=== PATIENT | female | born 1975 | race Caucasian/White ===

== ENCOUNTER → 2018-04-12 07:29 | Outpatient (CLI) | payer OTHER, SELFPAY ==
--- NOTE | 2018-04-12 07:31 | DI.MRI.S_ITS ---
PROCEDURE: MR CERVICAL SPINE WO CON INDICATIONS: cervical spondyloisis s/p NVA TECHNIQUE: Noncontrast sagittal T1 spin echo and T2 fast spin echo, sagittal STIR, foraminal oblique sagittal T2 fast spin echo, and axial gradient echo or T2 fast spin echo through the cervical spine. COMPARISON: None. FINDINGS: Image quality: Diagnostic. Spinal Cord: Visualized spinal cord has normal size and signal. No cerebellar tonsillar herniation. The imaged midline intracranial structures are grossly unremarkable. Paraspinous Soft Tissues: No paravertebral masses. Prevertebral soft tissues are normal in thickness. No definite lymphadenopathy is identified. Bones: The vertebral body heights and marrow signal are well-maintained. There is no evidence of an acute fracture or dislocation. No suspicious osseous lesions are identified. C2-C3: There is no significant disc bulge or facet arthropathy. No central canal or neural foraminal stenosis is evident. C3-C4: There is no significant disc bulge. However, there is mild bilateral facet arthrosis (right greater than left). These findings result in mild bilateral neural foraminal narrowing. There is no central canal stenosis. C4-C5: There is no significant disc bulge. However, there is mild bilateral facet arthropathy (left greater than right). These findings result in mild left neural foraminal narrowing. There is no central canal or right neural foraminal stenosis. C5-C6: There is mild diffuse disc bulge with associated bilateral facet arthrosis. There is no central canal stenosis. However, there is mild right neural foraminal narrowing. No left neural foraminal narrowing is evident. C6-C7: There is mild disc height loss and diffuse disc bulge with disc desiccation. No significant facet arthropathy is evident. However, the uncovertebral hypertrophic changes are present. There is no central canal stenosis. There is mild bilateral neural foraminal narrowing (right greater than left). C7-T1: There is no significant disc bulge or facet arthropathy. No central canal or neural foraminal stenosis is evident. IMPRESSION: 1. Mild multilevel degenerative changes of the cervical spine. 2. No focal disc protrusions or extrusions. 3. Central canal stenosis: None. 4. No foraminal stenosis: C3-C4 (mild bilateral), C4-C5 (mild left), C5-C6 (right), C6-C7 (mild bilateral). Dictated by: Raghu Sinclair M.D. on 04/12/2018 at 10:47 Approved by: Raghu Sinclair M.D. on 04/12/2018 at 10:55
--- NOTE | 2018-04-12 07:31 | DI.MRI.S_ITS ---
PROCEDURE: MR LUMBAR SPINE WO CON INDICATIONS: cervical spondyloisis s/p NVA TECHNIQUE: Noncontrast sagittal T1 spin echo and T2 fast echo, sagittal STIR, axial T1 and T2 fast spin echo through the lumbar spine. In cases with scoliosis, additional coronal T2 fast spin echo may be performed. COMPARISON: [facility], CR, XR LUMBAR SPINE 2 OR 3 VIEWS, 07/16/2017, 15:06. FINDINGS: Image quality: Diagnostic. Spinal Cord: The imaged portions of the spinal cord are normal in size and signal. The conus medullaris is normal in position. Paraspinous Soft Tissues: No paravertebral masses. Image soft tissues of the abdomen and pelvis are grossly unremarkable; however, not adequately evaluated on this exam. The abdominal aorta is normal in course and caliber. Bones: The vertebral body heights and marrow signal are within normal limits. There is no acute fracture or dislocation. Lower thoracic levels: No significant degenerative changes of the included lower thoracic levels are present. There is no central canal or neural foraminal narrowing at these levels. L1-L2: There is no significant disc bulge or facet arthropathy. There may be early disc desiccation. There is no central canal or neural foraminal stenosis. L2-L3: There is disc desiccation and mild disc height loss with minimal diffuse disc bulge. There is no significant facet arthrosis. No central canal or neural foraminal narrowing is evident. L3-L4: There is no significant disc bulge or facet arthropathy. There may be mild disc desiccation. There is no central canal or neural foraminal stenosis. L4-L5: There is mild disc height loss, and diffuse disc bulge, a small central/left paracentral annular fissure, and mild to moderate bilateral facet arthrosis. There is no central canal stenosis. No significant neural foraminal narrowing is evident. L5-S1: There is disc desiccation and diffuse disc bulge with a probable central annular fissure. Moderate bilateral facet arthropathy is present. There is no central canal stenosis. There may be mild bilateral neural foraminal narrowing. IMPRESSION: 1. Mild degenerative changes of the lower lumbar spine. 2. No disc protrusions or disc extrusions. Small annular fissures are noted at the L4-5 and L5-S1 levels. 3. Central canal stenosis: None. 4. Neural foraminal stenosis: L5-S1 (possible mild bilateral). Dictated by: Raghu Sinclair M.D. on 04/12/2018 at 11:00 Approved by: Raghu Sinclair M.D. on 04/12/2018 at 11:11
== END ==
PROVIDERS: PCP Obstetrics & Gynecology; Visit Provider Physical Medicine & Rehabilitation
DX: M47.892 Other spondylosis, cervical region (principal); M50.30 Other cervical disc degeneration, unspecified cervical region; M51.36 Other intervertebral disc degeneration, lumbar region
CPT/HCPCS: 72141; 72148

== ENCOUNTER 2018-05-08 14:57 | Outpatient (CLI) | payer OTHER, SELFPAY ==
[2018-05-08] VITALS (9 sets, daily range): BP systolic 110–125; BP diastolic 71–86; PULSE 80–87; RESP 16–18; TEMP 36.4; O2SAT 98–100
--- NOTE | 2018-05-08 14:59 | DI.RAD.S_ITS ---
PROCEDURE: PAIN L/SI FACET INJ/BLK 1STL INDICATIONS: LUMBAR REGION SPONDYLOSIS FINDINGS: Fluoroscopic spot filming was performed to verify placement of spinal needles at the right L4-5 and right L5-S1 level(s), as labeled on the films. Appropriate location(s) of the needle tip(s) was confirmed by injection of iodinated contrast. IMPRESSION: Successful needle tip localization for facet joint region injection on the right at L4-5 and L5-S1. Dictated by: Antonio Lynn M.D. on 05/08/2018 at 16:34 Approved by: Antonio Lynn M.D. on 05/08/2018 at 16:36
--- NOTE | 2018-05-08 15:22 | P.PCN_ITS ---
Procedures Date/Time Date of procedure: 05/08/18 Time of procedure: 15:21 General Procedure description: PREOP DIAGNOSIS 1. FACET ARTHROPATHY 2. AXIAL LBP 3. MULTILEVEL DDD POST OP DIAGNOSIS 1. FACET ARTHROPATHY 2. AXIAL LBP 3. MULTILEVEL DDD PROCEDURES 1. FLUORSCOPICALLY GUIDED CONTRAST CONTROLLED FACET JOINT INJECTIONS RIGHT L4/5 , L5/S1 SURGEON: Williams Prince, DO INDICATIONS Lindsey is referred by KODY Armas for treatment of Axial LBP FINDINGS Multilevel Facet Arthropathy with Clinically significant axial LBP DESCRIPTION OF PROCEDURE Fluoroscopically guided, contrast-controlled right L4/5, L5/S1 facet joint injections. Following denial of allergy and review of potential side effects and complications, including, but not necessarily limited to, infection, allergic reaction, local tissue breakdown, stroke, temporary or permanent nerve injury, paralysis, and possible , the patient indicated that the patient understood and agreed to proceed. An informed consent document was signed by the patient, witnessed by a nurse, and placed in the patient's chart. Additionally, other treatment options including medications, modalities, and physical therapy were reviewed with the patient. After review of previous anaesthesic history and IV conscious sedation the patient was deemed safe to proceed with todays procedure with IV conscious sedation as ASA class II designation. Safety time-out was performed to confirm patient ID, procedure to be performed and site of procedure. IV sedation was accomplished with a combination of 5mg was administered by the RN after DO order , titrated to patient comfort during the course of the procedure while the patient remained responsive to all verbal commands. In the prone position, following sterile prep and drape of the lumbar region, the posterior aspect of the right L4/5, L5/S1 facet joints were identified fluoroscopically. The skin was anesthetized via a 25-gauge 1.5-inch needle with 1% lidocaine solution into the corresponding facet joints. At this point, a 22-gauge 3.5-inch spinal needle was atraumatically introduced and advanced under fluoroscopic guidance into the corresponding facet joints. Following negative aspiration, injections of approximately 0.2-cc of Isovue 200 confirmed interarticular placement without vascular uptake. Radiological data, including multiple fluoroscopic views of the lumbosacral spine, reveal a spinal needle at the right L4/5, L5/S1 facet joints. Subsequent views show flow of contrast material both superiorly and inferiorly within the joint space without vascular or intrathecal uptake. At this point, a total of 0.5 cc including a mixture of 0.25cc Marcaine and 0.25cc betamethasone was injected without complication into each of the corresponding facet joints. The procedure tolerated the procedure well without signs or symptoms of complications prior to transfer to the recovery area continued monitoring without incident. The patient was then transferred to the recovery area where they were observed for an appropriate period of time after the injection. The patient reported a VAS score of 7 prior to the procedure and a post-procedure VAS of 0. Total Fluoroscopy Time: 12.7 seconds Total Conscious Sedation Time: 24min POST OP INSTRUCTIONS The patient was provided a Pain Log to continue to record their response to the target-specific procedure prior to follow-up visit with their referring physician. Additionally, specific post-injection care instructions and a contact number to our office were provided if concerns arise regarding possible complications associated with the procedure are suspected. Williams Prince DO Complications: none
[2018-05-08] MEDS: MIDAZOLAM 5 MG/5 ML VIAL IV (15:27)
[2018-05-08] MEDS: BETAMETHASONE 30 MG/5 ML MDV 12 MG INJ (15:30)
[2018-05-08] MEDS: IOPAMIDOL 15 ML VIAL 3 ML INJ (15:30)
[2018-05-08] MEDS: BUPIVACAINE 0.5% (PF) VIAL 2 ML INJ (15:30)
--- NOTE | 2018-05-09 15:25 | PC.NURSE ---
FOLLOW UP CALL MADE, PT STATES SHE IS A LITTLE SORE WOULD NOT GIVE IT A 0-10 NUMBER. I SUGGESTED SHE TAKE AN OVER THE COUNTER PAIN MEDICATION FOR IT LIKE TYLENOL (DID NOT SUGGEST IBUPROFEN SHE IS ON CELEBREX). GAVE PT OFFICE NUMBER FOR FUTURE CONCERNS AND REMINDED HER OF HER FOLLOW UP APPT.
== END 2018-05-08 16:14 | disposition home or self-care (01) ==
PROVIDERS: PCP Nurse Practitioner Family; Visit Provider Physical Medicine & Rehabilitation
DX: M47.816 Spondylosis without myelopathy or radiculopathy, lumbar region (principal); M47.817 Spondylosis without myelopathy or radiculopathy, lumbosacral region; M51.36 Other intervertebral disc degeneration, lumbar region; M51.37 Other intervertebral disc degeneration, lumbosacral region
CPT/HCPCS: 64493; 64494; 99152; J0702; J2250

== ENCOUNTER 2018-05-29 08:49 | Outpatient (CLI) | payer OTHER, SELFPAY ==
[2018-05-29] VITALS (13 sets, daily range): BP systolic 99–130; BP diastolic 65–91; PULSE 76–88; RESP 16–20; TEMP 36.6; O2SAT 99–100
--- NOTE | 2018-05-29 08:50 | DI.RAD.S_ITS ---
PROCEDURE: PAIN C/T INTERLAMINAR INJECT INDICATIONS: CERVICAL HERNIATED NUCLEUS PULPOSIS FINDINGS: Fluoroscopic spot filming was performed to verify placement of spinal needles at the C6-7 level(s), as labeled on the films. Appropriate location(s) of the needle tip(s) was confirmed by injection of iodinated contrast. IMPRESSION: Posterior midline C6-C7 translaminar epidural steroid injection. Dictated by: Antonio Lynn M.D. on 05/29/2018 at 15:10 Approved by: Antonio Lynn M.D. on 05/29/2018 at 15:10
[2018-05-29] MEDS: MIDAZOLAM 5 MG/5 ML VIAL IV (10:10)
[2018-05-29] MEDS: fentaNYL 100 MCG/2 ML INJ 50 MCG IV (10:16)
[2018-05-29] MEDS: LIDOCAINE 1% 20 ML INJ 5 ML INJ (10:18)
[2018-05-29] MEDS: IOPAMIDOL 15 ML VIAL 3 ML INJ (10:18)
[2018-05-29] MEDS: DEXAMETHASONE 10 MG/ML VIAL 30 MG INJ (10:18)
--- NOTE | 2018-05-29 10:30 | PM.PROC.1 ---
Procedures Date/Time Date of procedure: 05/29/18 Time of procedure: 10:30 General Procedure description: PREOP DIAGNOSIS 1. CERVICAL STENOSIS, 2. CERVICAL HNP WITH UPPER EXTREMITY RADICULAR FEATURES, POST OP DIAGNOSIS 1. CERVICAL STENOSIS, 2. CERVICAL HNP WITH UPPER EXTREMITY RADICULAR FEATURES, PROCEDURES 1. FLUORSCOPICALLY GUIDED CONTRAST CONTROLLED INTERLAMINAR EPIDURAL STEROID INJECTION - C6/7 TL ARIEL PHYSICIAN: Williams Prince DO INDICATIONS: Lindsey is referred by KODY Armas for treatment of Cervical HNP with Upper Extremity Paresthesias. FINDINGS Cervical Stenosis due to disc deterioration and nerve root irritation and nerve root irritation DESCRIPTION OF PROCEDURE Fluoroscopically guided, contrast-controlled C6/7 translaminar epidural steroid injection with conscious sedation. Following denial of allergy and review of potential side effects and complications, including, but not necessarily limited to, infection, allergic reaction, local tissue breakdown, temporary as well as permanent nerve injury, stroke, paralysis, and possible , the patient indicated that patient understood and agreed to proceed. An informed consent document was signed by the patient, witnessed by a nurse, and placed in the patient's chart. Additionally, other treatment options including modalities, medications, and physical therapy were reviewed with the patient. After review of previous anaesthesic history and IV conscious sedation the patient was deemed safe to proceed with todays procedure with IV conscious sedation as ASA class II designation. Safety time-out was performed to confirm patient ID, procedure to be performed and site of procedure. IV sedation was accomplished with a combination of 3mg of Versed administered by the RN after DO order, titrated to patient comfort during the course of the procedure while the patient remained responsive to all verbal commands. In the prone position, following sterile prep and drape of the cervical region, the C6/7 translaminar space was identified fluoroscopically. The skin was anesthetized via a 25-gauge 1.5-inch needle with 1% lidocaine solution. At this point, a 25-gauge, 2.5-inch short bevel spinal needle was atraumatically introduced and advanced under fluoroscopic guidance into epidural space at the C6/7 translaminar space. Depth was confirmed on lateral view. Radiological data, including multiple fluoroscopic views of the cervical spine, reveal a spinal needle at the C6/7 translaminar space. Lateral views then show placement of the needle in the epidural space. Subsequent views show contrast material flowing superiorly and inferiorly in the epidural space. DSA fluoroscopy with live contrast injection, once again, confirmed no vascular or intrathecal uptake. At this point, using loss of resistance technique with saline and air, the epidural space was entered. Following negative aspiration, injection of approximately 1.5 cc of Isovue-200 with live fluoroscopy in the AP view confirmed epidural flow in the epidural space without vascular or intrathecal uptake observed. Subsequently, a test dose of 1 cc of 1% lidocaine solution was injected and patient was observed for two minutes without signs or symptoms of complications, including abdominal pain, shortness of breath, bilateral upper or lower extremity weakness, nausea and vomiting, prior to steroid injection. At this point, 3 cc or 30 mg of dexamethasone was then injected without incident. The patient tolerated the procedure well without signs or symptoms of complications prior to being transferred to the recovery area for further monitoring, The patient was then transferred to the recovery area where they were observed for an appropriate period of time after the injection. The patient reported a VAS score of 6 prior to the procedure and a post-procedure VAS of 0. Total Fluoroscopy Time: 37.0 seconds Total Conscious Time: 24min POST OP INSTRUCTIONS The patient was provided a Pain Log to continue to record their response to the target-specific procedure prior to follow-up visit with the referring provider. Additionally, specific post-injection care instructions and a contact number to our office were provided if concerns arise regarding possible complications associated with the procedure are suspected. Williams Prince DO Complications: none
== END 2018-05-29 11:20 ==
LOC: RAD 08:49
PROVIDERS: PCP Nurse Practitioner Family; Visit Provider Physical Medicine & Rehabilitation
DX: M50.123 Cervical disc disorder at C6-C7 level with radiculopathy (principal); M48.02 Spinal stenosis, cervical region
CPT/HCPCS: 62321; 99152; J1100; J2250; J3010

== ENCOUNTER 2018-06-27 07:21 | Outpatient (CLI) | payer OTHER, SELFPAY ==
[2018-06-27] VITALS (12 sets, daily range): BP systolic 98–123; BP diastolic 62–93; PULSE 78–91; RESP 15–18; TEMP 36.3; O2SAT 98–100
--- NOTE | 2018-06-27 07:22 | DI.RAD.S_ITS ---
PROCEDURE: PAIN L/SI FACET INJ/BLK 1STL INDICATIONS: SPONDYLOSIS FINDINGS: Fluoroscopic spot filming was performed to verify placement of spinal needles at the on the right at the L4, L5, and S1 level(s), as labeled on the films. IMPRESSION: Intraprocedural examination within normal limits. Dictated by: Narendra Post M.D. on 06/28/2018 at 9:35 Approved by: Narendra Post M.D. on 06/28/2018 at 9:35
[2018-06-27] MEDS: MIDAZOLAM 5 MG/5 ML VIAL IV (08:23)
[2018-06-27] MEDS: IOPAMIDOL 15 ML VIAL 3 ML INJ (08:29)
[2018-06-27] MEDS: BETAMETHASONE 30 MG/5 ML MDV 12 MG INJ (08:30)
[2018-06-27] MEDS: BUPIVACAINE 0.5% (PF) VIAL 2 ML INJ (08:30)
--- NOTE | 2018-06-27 08:37 | PM.PROC.1 ---
Procedures Date/Time Date of procedure: 06/27/18 Time of procedure: 08:37 General Procedure description: POST OP DIAGNOSIS 1. FACET ARTHROPATHY PROCEDURES 1. Right L4, L5 and S1 MB BLOCKS PHYSICIAN: Williams Prince DO INDICATIONS: Lindsey is referred by KODY Armas for treatment of Right Axial LBP. DESCRIPTION OF PROCEDURE Fluoroscopically guided, contrast-controlled right L4, L5 and S1 medial branch blocks with 0.5cc of 0.5% Marcaine. Following denial of allergy and review of potential side effects and complications, including, but not necessarily limited to, infection, allergic reaction, local tissue breakdown, nerve injury, paralysis, stroke and possible , the patient indicated that the patient understood and agreed to proceed. An informed consent document was signed by the patient, witnessed by a nurse, and placed in the patient's chart. After review of previous anaesthesic history and IV conscious sedation the patient was deemed safe to proceed with todays procedure with IV conscious sedation as ASA class II designation. Safety time-out was performed to confirm patient ID, procedure to be performed and site of procedure. IV sedation was accomplished with a combination of 5mg was administered by the RN after DO order, titrated to patient comfort during the course of the procedure while the patient remained responsive to all verbal commands In the prone position, following sterile prep and drape of the lumbar region, the right L4, L5 and S1 anatomical location of the medial branch of the dorsal ramus was identified fluoroscopically. Subsequently an anesthetic skin wheal using 1% lidocaine solution was initiated at each of the anatomical spots. Subsequently then a 22-gauge 3.5-inch spinal needle was atraumatically introduced and advanced under fluoroscopic guidance at each of the corresponding sites at the right L4, L5 and S1 MB. After negative aspiration, 0.2 cc of Isovue 200 was injected, confirming placement without vascular or intrathecal uptake. Subsequently then 0.5 cc of 0.5% Marcaine solution was injected at each of the corresponding sites at the right L4, L5 and S1 medial branch locations. The patient tolerated the procedure well without signs or symptoms of complications. The procedure tolerated the procedure well without signs or symptoms of complications prior to transfer to the recovery area continued monitoring without incident. Post-procedure, the patient was monitored initiating provocative activities to measure the amount of relief from block of the facetogenic pain. The patient reported a VAS of 7 prior to the procedure and a post-procedure VAS of 1. It has been a pleasure to assist in the diagnostic and therapeutic care of your patient. Total Fluoroscopy Time: 24.8 seconds Total Conscious Sedation Time: 24min POST OP INSTRUCTIONS The patient was provided with a Pain Log to complete over the next several hours and subsequent days prior to the patient's follow up with the ordering physician. 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 The patient is aware, was provided, once again, with a Pain Log and will follow up with the referring physician for review and clinical correlation Williams Prince DO Complications: none
== END 2018-06-27 09:07 ==
LOC: RAD 07:22
PROVIDERS: PCP Nurse Practitioner Family; Visit Provider Physical Medicine & Rehabilitation
DX: M47.816 Spondylosis without myelopathy or radiculopathy, lumbar region (principal); M54.5 Low back pain
CPT/HCPCS: 64493; 64494; 99152; J0702; J2250

== ENCOUNTER 2018-08-01 07:16 | Outpatient (CLI) | payer OTHER, SELFPAY ==
[2018-08-01] VITALS (13 sets, daily range): BP systolic 99–133; BP diastolic 45–81; PULSE 70–82; RESP 16–18; TEMP 36.4; O2SAT 95–100
--- NOTE | 2018-08-01 07:18 | DI.RAD.S_ITS ---
PROCEDURE: PAIN L/S MED/LAT N RFA BILAT INDICATIONS: Lumbosacral spondylosis FINDINGS: Fluoroscopic spot filming was performed to verify placement of spinal needles at the right L4, L5, and S1 level(s), as labeled on the films. Appropriate location(s) of the needle tip(s) was confirmed by injection of iodinated contrast. IMPRESSION: Successful needle tip localization for L4-S1 medial branch rhizotomy. Dictated by: Antonio Lynn M.D. on 08/01/2018 at 13:00 Approved by: Antonio Lynn M.D. on 08/01/2018 at 13:01
[2018-08-01] MEDS: LIDOCAINE 1% 20 ML INJ 10 ML INJ (08:24)
[2018-08-01] MEDS: fentaNYL 100 MCG/2 ML INJ IV (08:37)
[2018-08-01] MEDS: MIDAZOLAM 5 MG/5 ML VIAL IV (08:37)
[2018-08-01] MEDS: BUPIVACAINE 0.5% (PF) VIAL 5 ML INJ (08:42)
--- NOTE | 2018-08-01 09:04 | PC.NURSE ---
assisting pt off proc. table and will transport to post op in stable condition
--- NOTE | 2018-08-01 09:12 | P.PCN_ITS ---
Procedures Date/Time Date of procedure: 08/01/18 Time of procedure: 09:10 General Procedure description: PREOP DIAGNOSIS 1. RECALCITRANT FACET ARTHROPATHY, POST OP DIAGNOSIS 1. RECALCITRANT FACET ARTHROPATHY, PROCEDURES 1. RIGHT L4 AND L5 MEDIAL BRANCH RADIOFREQUENCY NEUROTOMY AND RIGHT S1 DORSAL RAMUS BRANCH RADIOFREQUENCY NEUROTOMY, SURGEON: Williams Prince, DO INDICATIONS Lindsey is referred by KODY Armas for treatment of facet arthropathy. DESCRIPTION OF PROCEDURE Right L4 and L5 medial branch radiofrequency neurotomy and right S1 dorsal ramus branch radiofrequency neurotomy under fluoroscopy with conscious sedation. The patient is well known to this clinic having undergone previous facet injections with good but temporary relief. The patient has experienced appropriate, concordant relief with previous facet and median branch blocks but the patient's pain has been recalcitrant to further conservative measures. Therefore, based upon the patient's relief and persistent symptoms, the patient is considered an appropriate candidate for facet rhizotomy. All of the patient' s questions regarding the risks versus benefits of the procedure, including, but not limited to, bleeding, infection, temporary as well as lasting nerve injury, paralysis, stroke, and , as well treatment alternatives were answered to satisfaction. After review of previous anaesthesic history and IV conscious sedation the patient was deemed safe to proceed with todays procedure with IV conscious sedation as ASA class II designation. Safety time-out was performed to confirm patient ID, procedure to be performed and site of procedure. IV sedation was accomplished with a combination of 4mg of Versed was administered by the RN after DO order, titrated to patient comfort during the course of the procedure while the patient remained responsive to all verbal commands. After obtaining informed consent, denial of pertinent drug allergies, as well as being made aware of the potential risks of bleeding, infection, spinal cord trauma, paralysis, temporary and permanent nerve damage, seizure, stroke, and possible , the patient was brought to the fluoroscopy suite and positioned prone on the fluoroscopy table. The lumbar region was prepped with Betadine and covered with a fenestrated drape in the usual sterile fashion. Appropriate monitors applied including pulse oximeter, pulse, and blood pressure for regular monitoring throughout the procedure. After local infiltration using 1% lidocaine, under fluoroscopic guidance, a 10- cm RF insulated needle with a 10-mm active tip was positioned parallel to the junction of the right sacral ala and the superior articulating process where the S1 dorsal ramus resides. Needle placement was confirmed with sensory stimulation at 50 Hz, with motor stimulation of .5v on the right which produced local stimulation without radicular component. The stimulation was then increased to 1.5v with, once again, only local multifidus stimulation without radicular component. This was then followed by two discreet lesions performed at 80 degrees Celsius for 90 seconds each. The needle was then removed and the identical procedure was performed along the length of the right L5 medial branch with motor stimulation at .7v on the right. The identical procedure was once again performed along the length of the right L4 medial branch with motor stimulation of .5v on the right. The patient tolerated the procedure well without signs or symptoms of complications prior to transfer to the recovery area continued monitoring without incident. The patient was then transferred to the recovery area where they were observed for an appropriate period of time after the injection. The patient was then transferred to the recovery area where they were observed for an appropriate period of time after the injection. The patient reported a VAS score of 9 prior to the procedure and a post- procedure VAS of 0. Total Fluoroscopy Time: 31 seconds Total Conscious Sedation Time: 45min POST OP INSTRUCTIONS The patient was provided a Pain Log to continue to record the patient's response to the target-specific procedure prior to the patient's follow-up visit with the referring physician. Additionally, specific post-injection care instructions and a contact number to our office were provided if concerns arise regarding possible complications associated with the procedure are suspected. Williams Prince DO Complications: none
--- NOTE | 2018-08-01 09:15 | PC.NURSE ---
received pt from Sushma CHAU after procedure, pt stable awake and able to get needs met. resumed monitoring.
[2018-08-01] MEDS: IOPAMIDOL 15 ML VIAL 3 ML INJ (09:25)
== END 2018-08-01 09:25 ==
LOC: RAD 07:17
PROVIDERS: PCP Nurse Practitioner Family; Visit Provider Physical Medicine & Rehabilitation
DX: M47.816 Spondylosis without myelopathy or radiculopathy, lumbar region (principal)
CPT/HCPCS: 64635; 64636; 99152; 99153; J2250; J3010

== ENCOUNTER 2019-01-02 07:25 | Outpatient (CLI) | payer OTHER, SELFPAY ==
[2019-01-02] VITALS (8 sets, daily range): BP systolic 102–126; BP diastolic 65–81; PULSE 44–76; RESP 16–18; O2SAT 96–100
--- NOTE | 2019-01-02 07:26 | DI.RAD.S_ITS ---
PROCEDURE: PAIN SI JOINT INJECTION, 6 total images, 3 on the right and 3 on the left INDICATIONS: SPONDYLOSIS FINDINGS: Fluoroscopic spot filming was performed to verify placement of spinal needles at the right and left sacroiliac joints, as labeled on the films. Appropriate location(s) of the needle tip(s) was confirmed by injection of iodinated contrast. IMPRESSION: Right and left sacroiliac joint needle tip localization over the lower margin of the sacroiliac joints bilaterally, incidental is made of an IUD centrally positioned. Dictated by: Antonio Lynn M.D. on 01/02/2019 at 9:37 Approved by: Antonio Lynn M.D. on 01/02/2019 at 9:38
[2019-01-02] MEDS: fentaNYL 100 MCG/2 ML INJ 50 MCG IV (08:19)
[2019-01-02] MEDS: MIDAZOLAM 5 MG/5 ML VIAL IV (08:19)
[2019-01-02] MEDS: LIDOCAINE 1% 20 ML INJ 10 ML INJ (08:30)
[2019-01-02] MEDS: IOPAMIDOL 15 ML VIAL 3 ML INJ (08:30)
[2019-01-02] MEDS: BETAMETHASONE 30 MG/5 ML MDV 12 MG INJ (08:31)
[2019-01-02] MEDS: BUPIVACAINE 0.5% (PF) VIAL 2 ML INJ (08:31)
--- NOTE | 2019-01-02 08:38 | PC.NURSE ---
Pt tolerated procedure, pt awake and alert able to get off table with standby assist. Transferred to pre procedure room via wheelchair for continued monitoring with Sushma CHAU.
--- NOTE | 2019-01-02 08:44 | PM.PROC.1 ---
Procedures Date/Time Date of procedure: 01/02/19 Time of procedure: 08:44 General Procedure description: PREOP Dx: Sacroiliac joint pain/DJD POST OP DX: Sacroiliac Joint Pain/DJD Procedures: Fluoroscopic guided contrast controlled bilateral sacroiliac joint injection Physician: Williams Prince D.O. Indications: Lindsey is referred by KODY Armas for treatment of bilateral sacroiliac joint DJD Description of procedure Fluoroscopic guided, contrast controlled right sacroiliac joint injection Following denial of allergies and review of potential side effects and complications, including, but not necessarily limited to, infection, allergic reaction, local tissue breakdown, temporary as well as permanent nerve injury, paralysis, stroke and possible , the patient indicated that they understood and agreed to proceed. An informed consent was signed by the patient, witnessed by a nurse, and placed in the patient's chart. Additionally, other treatment options including modalities, medications, and physical therapy were reviewed with the patient. After review of previous anaesthesic history and IV conscious sedation the patient was deemed safe to proceed with todays procedure with IV conscious sedation as ASA class II designation. Safety time-out was performed to confirm patient ID, procedure to be performed and site of procedure. IV sedation was accomplished with a combination of 5mg of Versed and 50mcg Fentanyl was administered by the RN after DO order, titrated to patient comfort during the course of the procedure while the patient remained responsive to all verbal commands In the prone position following sterile prep and drape of the pelvic region, the hyper lucency on in the inferior aspect of the sacroiliac joint was identified fluoroscopically the skin was anesthetized be a 25 gauge 1 eventual with approximately 2 cc of 1% lidocaine solution. At this point, a 22 gauge spinal needle was atraumatically introduced and advanced under fluoroscopic guidance into the inferior aspect of the right sacroiliac joint. Following negative aspiration, approximately 0.3 cc of Isovue-300 was injected confirming intra-articular placement without vascular uptake. Radiographic data, including multiple fluoroscopic views of the pelvis, reveals a spinal needle in the sacroiliac joint hyper lucent zone. Subsequent view show flow contrast tear superiorly and inferiorly within the joint capsule without vascular intrathecal uptake. At this point a total of 1 cc or 0 8 of 0.5% Marcaine was combined with 1 cc of 6 mg of betamethasone was injected without incident. After complettion of the procedure on the right attention was refocused on the to left where the procedure was replicated. The procedure tolerated the procedure well without signs or symptoms of complications prior to transfer to the recovery area continued monitoring without incident. The patient was then transferred to the recovery area with a bur observed for an appropriate time after the injection. The patient reverted a vas score of 7 prior to the procedure and postprocedure vas of 1. Total fluoroscopy time: 22.7 sec Total conscious sedation time: 24 min Postop instructions The patient was provided with a pain like to continue to record the patient's response to the target specific procedure prior to the patient's follow-up visit with the referring physician. Additionally, specific post injection care instructions and a contact number to our office were provided if concerns arise regarding the possible complications associated with procedure are suspected. Williams Prince D.O. Complications: none
--- NOTE | 2019-01-02 08:47 | P.PCN_ITS ---
Procedures Date/Time Date of procedure: 01/02/19 Time of procedure: 08:44 General Procedure description: PREOP Dx: Sacroiliac joint pain/DJD POST OP DX: Sacroiliac Joint Pain/DJD Procedures: Fluoroscopic guided contrast controlled bilateral sacroiliac joint injection Physician: Williams Prince D.O. Indications: Lindsey is referred by KODY Armas for treatment of bilateral sacroiliac joint DJD Description of procedure Fluoroscopic guided, contrast controlled right sacroiliac joint injection Following denial of allergies and review of potential side effects and complications, including, but not necessarily limited to, infection, allergic reaction, local tissue breakdown, temporary as well as permanent nerve injury, paralysis, stroke and possible , the patient indicated that they understood and agreed to proceed. An informed consent was signed by the patient, witnessed by a nurse, and placed in the patient's chart. Additionally, other treatment options including modalities, medications, and physical therapy were reviewed with the patient. After review of previous anaesthesic history and IV conscious sedation the patient was deemed safe to proceed with todays procedure with IV conscious sedation as ASA class II designation. Safety time-out was performed to confirm patient ID, procedure to be performed and site of procedure. IV sedation was accomplished with a combination of 5mg of Versed and 50mcg Fentanyl was administered by the RN after DO order, titrated to patient comfort during the course of the procedure while the patient remained responsive to all verbal commands In the prone position following sterile prep and drape of the pelvic region, the hyper lucency on in the inferior aspect of the sacroiliac joint was identified fluoroscopically the skin was anesthetized be a 25 gauge 1 eventual with approximately 2 cc of 1% lidocaine solution. At this point, a 22 gauge spinal needle was atraumatically introduced and advanced under fluoroscopic guidance into the inferior aspect of the right sacroiliac joint. Following negative aspiration, approximately 0.3 cc of Isovue-300 was injected confirming intra- articular placement without vascular uptake. Radiographic data, including multiple fluoroscopic views of the pelvis, reveals a spinal needle in the sacroiliac joint hyper lucent zone. Subsequent view show flow contrast tear superiorly and inferiorly within the joint capsule without v ascular intrathecal uptake. At this point a total of 1 cc or 0 8 of 0.5% Marcaine was combined with 1 cc of 6 mg of betamethasone was injected without incident. After complettion of the procedure on the right attention was refocused on the to left where the procedure was replicated. The procedure tolerated the procedure well without signs or symptoms of complications prior to transfer to the recovery area continued monitoring without incident. The patient was then transferred to the recovery area with a bur observed for an appropriate time after the injection. The patient reverted a vas score of 7 prior to the procedure and postprocedure vas of 1. Total fluoroscopy time: 22.7 sec Total conscious sedation time: 24 min Postop instructions The patient was provided with a pain like to continue to record the patient's response to the target specific procedure prior to the patient's follow-up visit with the referring physician. Additionally, specific post injection care instru ctions and a contact number to our office were provided if concerns arise regarding the possible complications associated with procedure are suspected. Williams Prince D.O. Complications: none
== END 2019-01-02 09:08 | disposition home or self-care (01) ==
LOC: RAD 07:25
PROVIDERS: PCP Nurse Practitioner Family; Visit Provider Physical Medicine & Rehabilitation
DX: M47.898 Other spondylosis, sacral and sacrococcygeal region (principal); M53.3 Sacrococcygeal disorders, not elsewhere classified
CPT/HCPCS: 27096; 99152; J0702; J2250; J3010

== ENCOUNTER 2019-03-12 08:11 | Outpatient (CLI) | payer OTHER, SELFPAY ==
[2019-03-12] VITALS (7 sets, daily range): BP systolic 116–140; BP diastolic 79–89; PULSE 73–82; RESP 8–18; TEMP 36.2; O2SAT 100
--- NOTE | 2019-03-12 08:26 | DI.RAD.S_ITS ---
PROCEDURE: PAIN L INTERLAMINAR/CAUDAL INJ INDICATIONS: INTERVERTEBRAL DISC DISPLACEMENT FINDINGS: Fluoroscopic spot filming was performed to verify placement of spinal needles at the right L5-S1 level(s), as labeled on the films. Appropriate location(s) of the needle tip(s) was confirmed by injection of iodinated contrast. IMPRESSION: Fluoroscopy for pain management. Dictated by: Blaze Howard M.D. on 03/12/2019 at 11:24 Approved by: Blaze Howard M.D. on 03/12/2019 at 11:24
[2019-03-12] MEDS: fentaNYL 100 MCG/2 ML INJ 50 MCG IV (09:16)
[2019-03-12] MEDS: MIDAZOLAM 5 MG/5 ML VIAL IV (09:16)
[2019-03-12] MEDS: BUPIVACAINE 0.25% (PF) VIAL 2 ML INJ (09:23)
[2019-03-12] MEDS: IOPAMIDOL 15 ML VIAL 3 ML INJ (09:24)
[2019-03-12] MEDS: BETAMETHASONE 30 MG/5 ML MDV 12 MG INJ (09:24)
--- NOTE | 2019-03-12 09:27 | PC.NURSE ---
pt tolerated procedure well. Able to get off the table with standby assist. Transferred pt awake and alert to pre procedure room via wheelchair. Resumed Monitoring with Sushma CHAU.
--- NOTE | 2019-03-12 09:31 | PM.PROC.1 ---
Procedures Date/Time Date of procedure: 03/12/19 Time of procedure: 09:31 General Procedure description: PROVIDER: Williams Prince DO Operative Note PREOP DIAGNOSIS 1. HNP WITH RADICULAR FEATURES, 2. MULTILEVEL CENTRAL STENOSIS, POST OP DIAGNOSIS 1. HNP WITH RADICULAR FEATURES, 2. MULTILEVEL CENTRAL STENOSIS, PROCEDURES 1. FLUORSCOPICALLY GUIDED CONTRAST CONTROLLED INTERLAMINAR EPIDURAL STEROID INJECTION - para right L5/S1 PHYSICIAN: Williams Prince DO INDICATIONS Lindsey is referred by KODY Armas for treatment of Bilateral Foraminal Stenosis L>R LE symptoms. FINDINGS Multilevel Central Spinal Stenosis with Nerve Root Compression DESCRIPTION OF PROCEDURE Fluoroscopically guided, contrast-controlled L5/S1 translaminar epidural steroid injection. Following denial of allergy and review of potential side effects and complications, including, but not necessarily limited to, infection, allergic reaction, local tissue breakdown, temporary as well as permanent nerve injury, paralysis, stroke and possible , the patient indicated that the patient understood and agreed to proceed. An informed consent document was signed by the patient, witnessed by a nurse, and placed in the patient's chart. Additionally, other treatment options including modalities, medications, and physical therapy were reviewed with the patient. After review of previous anaesthesic history and IV conscious sedation the patient was deemed safe to proceed with todays procedure with IV conscious sedation as ASA class II designation. Safety time-out was performed to confirm patient ID, procedure to be performed and site of procedure. IV sedation was accomplished with a combination of 3mg of Versed and 50mcg of Fentanyl administered by the RN after DO order, titrated to patient comfort during the course of the procedure while the patient remained responsive to all verbal commands. In the prone position, following sterile prep and drape of the lumbar region, the L5/S1 translaminar space was identified fluoroscopically. The skin was anesthetized via a 25-gauge, 1.5-inch needle with 1% lidocaine solution. At this point, a 22-gauge short bevel spinal needle was atraumatically introduced and advanced under fluoroscopic guidance into the region of the L5/S1 translaminar space. Depth was confirmed on lateral view. Radiological data, including multiple fluoroscopic views of the lumbar spine, reveal a spinal needle at the L5/S1 translaminar space. Lateral views then show placement of the needle in the epidural space. Subsequent views show contrast material flowing superiorly and inferiorly in the epidural space. No vascular or intrathecal uptake is observed. At this point, using loss of resistance technique with saline and air, the epidural space was entered. This was confirmed following negative aspiration with injection of approximately 1.5 cc of Isovue 200, showing excellent epidural flow without vascular or intrathecal uptake. At this point, 1 cc of 1% lidocaine solution combined with 2cc or 20mg of dexamethasone was injected without incident. The patent tolerated the procedure without signs of symptoms of complications prior to transfer to the recovery area for further monitoring. The patient was then transferred to the recovery area where they were observed for an appropriate period of time after the injection. The patient reported a VAS score of 6 prior to the procedure and a post-procedure VAS of 0. Total Fluoroscopy Time: 11.8 seconds Total Conscious Sedation Time: 24min POST OP INSTRUCTIONS The patient was provided a Pain Log to continue to record their response to the target-specific procedure prior to follow-up visit with their referring physician. Additionally, specific post-injection care instructions and a contact number to our office were provided if concerns arise regarding possible complications associated with the procedure are suspected. Williams Prince DO Complications: none
--- NOTE | 2019-03-12 09:41 | PC.NURSE ---
ACCEPTED CARE OF PT IN POST PROC AREA IN STABLE CONDITION
== END 2019-03-12 10:11 | disposition home or self-care (01) ==
LOC: RAD 08:12
PROVIDERS: PCP Nurse Practitioner Family; Visit Provider Physical Medicine & Rehabilitation
DX: M51.17 Intervertebral disc disorders with radiculopathy, lumbosacral region (principal); M48.07 Spinal stenosis, lumbosacral region
CPT/HCPCS: 62323; 99152; J0702; J1100; J2250; J3010

== ENCOUNTER → 2020-04-20 08:41 | Outpatient (CLI) | payer OTHER, SELFPAY ==
--- NOTE | 2020-04-20 08:44 | DI.RAD.S_ITS ---
PROCEDURE: XR CERVICAL SPINE 4V OR 5V INDICATIONS: Right Axial LBP TECHNIQUE: 5 views of the cervical spine acquired. COMPARISON: None. FINDINGS: Bones: No fractures or dislocations to the T1 level. There is trace C3-C4 and C4-C5 anterolisthesis. Mild bilateral C5-C6 and C6-7 C7 uncovertebral joint hypertrophy. Mild C5-C6 and C6-C7 degenerative disc disease. Mild left C4-C5 and C5-C6 facet hypertrophy. Mild left C4-C5 and C5-C6 neural foraminal narrowing. Mild right C6-C7 uncovertebral joint hypertrophy. Soft tissues: No prevertebral soft tissue swelling. IMPRESSION: 1. No fracture. No acute osseous lesion. If symptoms and/or clinical suspicion for pathology persists, evaluation with MRI may be helpful for further assessment. 2. Multilevel degenerative disc disease. 3. Multilevel facet and uncovertebral arthropathy. Dictated by: Julita Diego MD, PhD on 04/20/2020 at 9:04 Approved by: Julita Diego MD, PhD on 04/20/2020 at 9:07
--- NOTE | 2020-04-20 08:44 | DI.RAD.S_ITS ---
PROCEDURE: XR LUMBAR SPINE MIN 4V INDICATIONS: Right Axial LBP TECHNIQUE: 4 views of the lumbar spine were acquired. COMPARISON: None. FINDINGS: Bones: 5 nonrib-bearing vertebrae are present. There is normal bony alignment. No vertebral body compression fractures. No suspicious bony lesions. Mild L1-L2, L2-L3, L3-L4 and L4-L5 degenerative disc changes. Soft tissues: Overlying bowel gas pattern is normal. No suspicious soft tissue calcifications. Oblique images: No pars defects. IMPRESSION: Mild multilevel degenerative disc disease. Dictated by: Julita Diego MD, PhD on 04/20/2020 at 9:17 Approved by: Julita Diego MD, PhD on 04/20/2020 at 9:18
== END ==
PROVIDERS: PCP Nurse Practitioner Family; Referring Provider Physical Medicine & Rehabilitation; Visit Provider Physical Medicine & Rehabilitation
DX: M54.5 Low back pain (principal); M51.16 Intervertebral disc disorders with radiculopathy, lumbar region; M50.122 Cervical disc disorder at C5-C6 level with radiculopathy; M47.22 Other spondylosis with radiculopathy, cervical region; M48.02 Spinal stenosis, cervical region; M46.90 Unspecified inflammatory spondylopathy, site unspecified; R51 Headache; G89.29 Other chronic pain
CPT/HCPCS: 72050; 72110

== ENCOUNTER → 2020-06-08 08:53 | Outpatient (CLI) | payer OTHER, SELFPAY ==
[2020-06-10 06:13] LABS: COVID19 Sendout Not Detected (Not Detect)
== END ==
PROVIDERS: PCP Nurse Practitioner Family; Visit Provider Physician Assistant
DX: Z11.59 Encounter for screening for other viral diseases (principal)
CPT/HCPCS: 87635

== ENCOUNTER 2020-06-11 13:55 | Outpatient (CLI) | payer OTHER, SELFPAY ==
[2020-06-11] VITALS (8 sets, daily range): BP systolic 115–138; BP diastolic 65–84; PULSE 70–83; RESP 15–18; TEMP 36.6; O2SAT 96–100
--- NOTE | 2020-06-11 13:57 | DI.RAD.S_ITS ---
PROCEDURE: PAIN L/SI FACET INJ/BLK 1STL INDICATIONS: SPONDYLOSIS COMPARISON: [facility], XA, PAIN L/SI FACET INJ/BLK 1STL, 06/27/2018, 8:27. [facility], XA, PAIN L/SI FACET INJ/BLK 1STL, 05/08/2018, 15:32. FINDINGS: Fluoroscopic spot filming was performed to verify placement of spinal needles at the right L4, L5 and S1 level(s), as labeled on the films. Appropriate location(s) of the needle tip(s) was confirmed by injection of iodinated contrast. IMPRESSION: Successful needle tip localization for right L4, L5, and S1 medial branch block procedures (3 total). Dictated by: Antonio Lynn M.D. on 06/11/2020 at 16:03 Approved by: Antonio Lynn M.D. on 06/11/2020 at 16:04
[2020-06-11] MEDS: fentaNYL 100 MCG/2 ML INJ 50 MCG IV (14:55)
[2020-06-11] MEDS: MIDAZOLAM 5 MG/5 ML VIAL IV (14:56)
[2020-06-11] MEDS: IOPAMIDOL 15 ML VIAL 3 ML INJ (15:00)
[2020-06-11] MEDS: BUPIVACAINE 0.5% (PF) VIAL 2 ML INJ (15:00)
--- NOTE | 2020-06-11 15:10 | P.PCN_ITS ---
Date/Time/Diagnoses Date of procedure: 06/11/20 Time of procedure: 15:10 Pre-procedure diagnosis: 1. FACET ARTHROPATHY Post-procedure diagnosis: same Procedure Notes Procedure: 1. Right L4, L5 and S1 MB BLOCKS Indications: Lindsey is referred by KODY Armas for treatment of Right Axial LBP. Physician: Williams Prince Total Fluoroscopy time (seconds): 6 Total sedation minutes: 12 Complications: none Procedure in detail & Post-procedure care: DESCRIPTION OF PROCEDURE Fluoroscopically guided, contrast-controlled right L4, L5 and S1 medial branch blocks with 0.5cc of 0.5% Marcaine. Following review of allergy and review of potential side effects and complications, including, but not necessarily limited to, infection, allergic reaction, local tissue breakdown, nerve injury, paralysis, stroke and possible , the patient indicated that the patient understood and agreed to proceed. An informed consent document was signed by the patient, witnessed by a nurse, and placed in the patient's chart. After review of previous anaesthesic history and IV conscious sedation the patient was deemed safe to proceed with today?s procedure with IV conscious sedation as ASA class II designation. Safety time-out was performed to confirm patient ID, procedure to be performed and site of procedure. IV sedation was accomplished with a combination of 3mg of Versed and 50mcg of Fentanyl was administered by the RN after DO order, titrated to patient comfort during the course of the procedure while the patient remained responsive to all verbal commands In the prone position, following sterile prep and drape of the lumbar region, the right L4, L5 and S1 anatomical location of the medial branch of the dorsal ramus was identified fluoroscopically. Subsequently an anesthetic skin wheal using 1% lidocaine solution was initiated at each of the anatomical spots. Subsequently then a 22-gauge 3.5-inch spinal needle was atraumatically introduced and advanced under fluoroscopic guidance at each of the corresponding sites at the right L4, L5 and S1 MB. After negative aspiration, 0.2 cc of Isovue 200 was injected, confirming placement without vascular or intrathecal uptake. Subsequently then 0.5 cc of 0.5% Marcaine solution was injected at each of the corresponding sites at the right L4, L5 and S1 medial branch locations. The patient tolerated the procedure well without signs or symptoms of com plications. The procedure tolerated the procedure well without signs or symptoms of complications prior to transfer to the recovery area continued monitoring without incident. Post-procedure, the patient was monitored initiating provocative activities to measure the amount of relief from block of the facetogenic pain. The patient reported a VAS of 7 prior to the procedure and a post-procedure VAS of 1. It has been a pleasure to assist in the diagnostic and therapeutic care of your patient. POST OP INSTRUCTIONS The patient was provided with a Pain Log to complete over the next several hours and subsequent days prior to the patient's follow up with the ordering physician. If the patient has plate slitter and inspector relief to the solution applied, then they may be a candidate for medial branch rhizotomy. The patient is aware, was provided, once again, with a Pain Log and will follow up with the referring physician for review and clinical correlation.
== END 2020-06-11 15:35 | disposition home or self-care (01) ==
LOC: RAD 13:56
PROVIDERS: PCP Nurse Practitioner Family; Referring Provider Physical Medicine & Rehabilitation; Visit Provider Physical Medicine & Rehabilitation
DX: M47.816 Spondylosis without myelopathy or radiculopathy, lumbar region (principal); M54.5 Low back pain
CPT/HCPCS: 64493; 64494; 99152; J2250; J3010

== ENCOUNTER → 2020-09-22 13:15 | Outpatient (CLI) | payer OTHER, SELFPAY ==
[2020-09-22 15:32] LABS: COVID19 -Nasal RAPID Negative (Negative)
== END ==
PROVIDERS: PCP Nurse Practitioner Family; Visit Provider Physical Medicine & Rehabilitation
DX: Z01.812 Encounter for preprocedural laboratory examination (principal); Z20.828 Contact with and (suspected) exposure to other viral communicable diseases
CPT/HCPCS: 87635; C9803

== ENCOUNTER 2020-09-24 07:22 | Outpatient (CLI) | payer OTHER, SELFPAY ==
[2020-09-24] VITALS (11 sets, daily range): BP systolic 92–105; BP diastolic 50–64; PULSE 63–76; RESP 12–20; TEMP 36.6; O2SAT 97–100
--- NOTE | 2020-09-24 07:46 | DI.RAD.S_ITS ---
PROCEDURE: PAIN L/S MED/LAT N RFA INDICATIONS: SPONDYLOSIS COMPARISON: [facility], CR, XR LUMBAR SPINE MIN 4V, 04/20/2020, 8:37. [facility], XA, PAIN L/SI FACET INJ/BLK 1STL, 06/11/2020, 15:00. FINDINGS: Fluoroscopic spot filming was performed to verify placement of spinal needles at the L4, L5 and S1 level(s), as labeled on the films. Appropriate location(s) of the needle tip(s) was confirmed by injection of iodinated contrast. IMPRESSION: Fluoroscopy for pain management. Dictated by: Blaze Howard M.D. on 09/24/2020 at 9:19 Approved by: Blaze Howard M.D. on 09/24/2020 at 9:20
[2020-09-24] MEDS: MIDAZOLAM 5 MG/5 ML VIAL IV (08:32)
[2020-09-24] MEDS: LIDOCAINE 1% 20 ML 10 ML INJ (08:40)
[2020-09-24] MEDS: BUPIVACAINE 0.5% (PF) VIAL 5 ML INJ (08:40)
--- NOTE | 2020-09-24 08:52 | P.PCN_ITS ---
Date/Time/Diagnoses Date of procedure: 09/24/20 Time of procedure: 08:52 Pre-procedure diagnosis: 1. RECALCITRANT FACET ARTHROPATHY Post-procedure diagnosis: same Procedure Notes Procedure: 1. RIGHT L4 AND L5 MEDIAL BRANCH RADIOFREQUENCY NEUROTOMY AND RIGHT S1 DORSAL RAMUS BRANCH RADIOFREQUENCY NEUROTOMY Indications: Lindsey is referred by KODY Armas for treatment of facet arthropathy. Physician: Williams Prince Total Fluoroscopy time (seconds): 6 Total sedation minutes: 19 Complications: none Procedure in detail & Post-procedure care: DESCRIPTION OF PROCEDURE Right L4 and L5 medial branch radiofrequency neurotomy and right S1 dorsal ramus branch radiofrequency neurotomy under fluoroscopy with conscious sedation. The patient is well known to this clinic having undergone previous facet injections with good but temporary relief. The patient has experienced appropriate, concordant relief with previous facet and median branch blocks but the patient's pain has been recalcitrant to further conservative measures. Therefore, based upon the patient's relief and persistent symptoms, the patient is considered an appropriate candidate for facet rhizotomy. All of the patient's questions regarding the risks versus benefits of the procedure, including, but not limited to, bleeding, infection, temporary as well as lasting nerve injury, paralysis, stroke, and , as well treatment alternatives were answered to satisfaction. After review of previous anaesthesic history and IV conscious sedation the patient was deemed safe to proceed with today?s procedure with IV conscious sedation as ASA class II designation. Safety time-out was performed to confirm patient ID, procedure to be performed and site of procedure. IV sedation was accomplished with a combination of 5mg of Versed was administered by the RN after DO order, titrated to patient comfort during the course of the procedure while the patient remained responsive to all verbal commands. After obtaining informed consent, denial of pertinent drug allergies, as well as being made aware of the potential risks of bleeding, infection, spinal cord trauma, paralysis, temporary and permanent nerve damage, seizure, stroke, and possible , the patient was brought to the fluoroscopy suite and positioned prone on the fluoroscopy table. The lumbar region was prepped with Betadine and covered with a fenestrated drape in the usual sterile fashion. Appropriate monitors applied including pulse oximeter, pulse, and blood pressure for regular monitoring throughout the procedure. After local infiltration using 1% lidocaine, under fluoroscopic guidance, a 10- cm RF insulated needle with a 10-mm active tip was positioned parallel to the junction of the right sacral ala and the superior articulating process where the S1 dorsal ramus resides. Needle placement was confirmed with sensory stimulation at 50 Hz, with motor stimulation of .5v on the right which produced local stimulation without radicular component. The stimulation was then increased to 2v with, once again, only local multifidus stimulation without radicular component. This was then followed by two discreet lesions performed at 80 degrees Celsius for 90 seconds each. The needle was then removed and the identical procedure was performed along the length of the right L5 medial branch with motor stimulation at .7v on the right. The identical procedure was once again performed along the length of the right L4 medial branch with motor stimulation of .5v on the right. The patient tolerated the procedure well without signs or symptoms of complications prior to transfer to the recovery area continued monitoring without incident. The patient was then transferred to the recovery area where they were observed for an appropriate period of time after the injection. The patient was then transferred to the recovery area where they were observed for an appropriate period of time after the injection. The patient reported a VAS score of 8 prior to the procedure and a post- procedure VAS of 0. POST OP INSTRUCTIONS The patient was provided a Pain Log to continue to record the patient's response to the target-specific procedure prior to the patient's follow-up visit with the referring physician. Additionally, specific post-injection care instructions and a contact number to our office were provided if concerns arise regarding possible complications associated with the procedure are suspected.
== END 2020-09-24 09:05 | disposition home or self-care (01) ==
PROVIDERS: PCP Nurse Practitioner Family; Referring Provider Nurse Practitioner Family; Visit Provider Physical Medicine & Rehabilitation
DX: M47.816 Spondylosis without myelopathy or radiculopathy, lumbar region (principal); M47.817 Spondylosis without myelopathy or radiculopathy, lumbosacral region
CPT/HCPCS: 64635; 64636; 99152; J2250

== ENCOUNTER → 2020-12-01 14:21 | Outpatient (CLI) | payer OTHER, SELFPAY ==
[2020-12-01 15:45] LABS: COVID19 -Nasal RAPID Negative (Negative)
== END ==
PROVIDERS: PCP Nurse Practitioner Family; Visit Provider Physical Medicine & Rehabilitation
DX: Z20.822 Contact with and (suspected) exposure to COVID-19 (principal)
CPT/HCPCS: 87635; C9803

== ENCOUNTER 2020-12-03 13:35 | Outpatient (CLI) | payer OTHER, SELFPAY ==
[2020-12-03] VITALS (7 sets, daily range): BP systolic 115–124; BP diastolic 69–88; PULSE 70–81; RESP 10–21; TEMP 36.6; O2SAT 96–100
--- NOTE | 2020-12-03 13:36 | DI.RAD.S_ITS ---
PROCEDURE: PAIN L/SI FACET INJ/BLK 1STL INDICATIONS: SPONDYLOSIS COMPARISON: [facility], , PAIN L/SI FACET INJ/BLK 1STL, 06/11/2020, 15:00. FINDINGS: Fluoroscopic spot filming was performed to verify placement of spinal needles at the L4, L5, S1 level(s), as labeled on the films. Appropriate location(s) of the needle tip(s) was confirmed by injection of iodinated contrast. Dictated by: Johnathan Villaseñor M.D. on 12/03/2020 at 15:36 Approved by: Johnathan Villaseñor M.D. on 12/03/2020 at 15:37
[2020-12-03] MEDS: MIDAZOLAM 5 MG/5 ML VIAL IV (14:20)
[2020-12-03] MEDS: IOPAMIDOL 15 ML VIAL 3 ML INJ (14:29)
[2020-12-03] MEDS: BUPIVACAINE 0.5% (PF) VIAL 5 ML INJ (14:29)
--- NOTE | 2020-12-03 14:35 | PM.PROC.IR.1 ---
Date/Time/Diagnoses Date of procedure: 12/03/20 Time of procedure: 14:35 Pre-procedure diagnosis: 1. FACET ARTHROPATHY Post-procedure diagnosis: same Procedure Notes Procedure: 1. Left L4, L5 and S1 MB BLOCKS Indications: Lindsey is referred by KODY Armas for treatment of Left Axial LBP. Physician: Williams Prince Total Fluoroscopy time (seconds): 6 Total sedation minutes: 13 Complications: none Procedure in detail & Post-procedure care: DESCRIPTION OF PROCEDURE Fluoroscopically guided, contrast-controlled left L4, L5 and S1 medial branch blocks with 0.5cc of 0.5% Marcaine. Following review of allergy and review of potential side effects and complications, including, but not necessarily limited to, infection, allergic reaction, local tissue breakdown, nerve injury, paralysis, stroke and possible , the patient indicated that the patient understood and agreed to proceed. An informed consent document was signed by the patient, witnessed by a nurse, and placed in the patient's chart. After review of previous anaesthesic history and IV conscious sedation the patient was deemed safe to proceed with today?s procedure with IV conscious sedation as ASA class II designation. Safety time-out was performed to confirm patient ID, procedure to be performed and site of procedure. IV sedation was accomplished with a combination of 5mg of Versed was administered by the RN after DO order, titrated to patient comfort during the course of the procedure while the patient remained responsive to all verbal commands. In the prone position, following sterile prep and drape of the lumbar region, the left L4, L5 and S1 anatomical location of the medial branch of the dorsal ramus was identified fluoroscopically. Subsequently an anesthetic skin wheal using 1% lidocaine solution was initiated at each of the anatomical spots. Subsequently then a 22-gauge 3.5-inch spinal needle was atraumatically introduced and advanced under fluoroscopic guidance at each of the corresponding sites at the left L4, L5 and S1 MB. After negative aspiration, 0.2cc of Isovue 200 was injected, confirming placement without vascular or intrathecal uptake. Subsequently then 0.5cc of 0.5% Marcaine solution was injected at each of the corresponding sites at the left L4, L5 and S1 medial branch locations. The patient tolerated the procedure well without signs or symptoms of complications. The patient tolerated the procedure well without signs or symptoms of complications prior to transfer to the recovery area continued monitoring without incident. Post-procedure, the patient was monitored initiating provocative activities to measure the amount of relief from block of the facetogenic pain. The patient reported a VAS of 7 prior to the procedure and a post-procedure VAS of 1. It has been a pleasure to assist in the diagnostic and therapeutic care of your patient. POST OP INSTRUCTIONS The patient was provided with a Pain Log to complete over the next several hours and subsequent days prior to the patient's follow up with the ordering physician. If the patient has computer training specialist relief to the solution applied, then they may be a candidate for medial branch rhizotomy. The patient is aware, was provided, once again, with a Pain Log and will follow up with the referring physician for review and clinical correlation.
== END 2020-12-03 14:57 | disposition home or self-care (01) ==
LOC: RAD 13:35
PROVIDERS: PCP Nurse Practitioner Family; Referring Provider Physical Medicine & Rehabilitation; Visit Provider Physical Medicine & Rehabilitation
DX: M47.816 Spondylosis without myelopathy or radiculopathy, lumbar region (principal); M47.817 Spondylosis without myelopathy or radiculopathy, lumbosacral region; M54.5 Low back pain
CPT/HCPCS: 64493; 64494; 99152; J2250; J3010